=== PATIENT | male | born 1945 | race Caucasian/White ===

== ENCOUNTER → 2017-08-10 | Outpatient (CLI) | payer MEDICARE ==
--- NOTE | 2017-08-10 12:04 | MR ---
EXAMINATION TYPE: MR knee RT wo con DATE OF EXAM: 08/10/2017 COMPARISON: Outside radiographs 07/27/2013 HISTORY: 72-year-old male Right knee pain TECHNIQUE: Multiplanar, multisequence imaging of the right knee is performed without IV contrast. FINDINGS: ACL, PCL, MCL, and LCL complex are intact. There is an oblique tear of the posterior horn of the medial meniscus with a tear extending into the substance of the body of the medial meniscus. Moderate to severe irregular cartilage loss especially along the mid weightbearing aspect of the medi al femoral condyle and also peripheral pleural aspect of the joint along the tibial plateau with mild underlying subchondral marrow edema. There is marginal spurring. Lateral meniscus appears intact. While there is some degenerative spurring in the lateral compartment , overall cartilage volume is maintained. Nearly full-thickness cartilage loss along portions of the medial patellar facet and also along the t rochlear facets with marginal spurring. Extensor mechanism is intact. [id number] knee joint effusion. No significant Lei's cyst. There is a small 4 mm loose body within the anterior tibiofemoral joint, sagittal image 18. Normal popliteal artery anatomy and mild diffuse muscular atrophy. No suspicious bone marrow replacem ent. Some patchy red marrow is present in the seen in the setting of anemia, obesity, smoking, and ch ronic disease. IMPRESSION: 1. Moderate to severe overall medial compartmental osteoarthrosis. Severe cartilage loss is present a long the mid weightbearing aspect of the medial femoral condyle and peripherally along the medial tib ial plateau where reactive subchondral bone marrow signal changes are present. 2. Moderate to severe patellofemoral compartmental osteoarthrosis. 3. Oblique tear posterior horn of the medial meniscus with tear extending into the substance of the m eniscal body. 4. Small to moderate knee joint effusion.
== END | disposition home or self-care (01) ==
LOC: RADMRIMAIN 08:16
PROVIDERS: ATTEND Orthopaedic Surgery
DX: S83.241A Other tear of medial meniscus, current injury, right knee, initial encounter (principal); M17.11 Unilateral primary osteoarthritis, right knee

== ENCOUNTER 2017-09-21 08:53 | Day surgery (SDC) | payer MEDICARE ==
[2017-09-15 13:27] VITALS: BMI 32.5
--- NOTE | 2017-09-20 16:18 | HP ---
HISTORY AND PHYSICAL REASON FOR ADMISSION: Surgery scheduled for 09/21/2017 HISTORY OF PRESENT ILLNESS: Uri Lamas is a 72-year-old patient seen with progressive right knee pain. Treatment options were discussed. He opted to proceed with right knee arthroscopy. Consent was obtained. Medical clearance was provided by Dr. Barreto. PAST MEDICAL HISTORY: Hypertension, hyperlipidemia, dzb-azqtrua-ukiqgokly diabetes, hypothyroidism. PAST SURGICAL HISTORY: Angioplasty, appendectomy. MEDICATIONS: Aspirin, atenolol, atorvastatin, fenofibrate, glipizide, levothyroxine, lisinopril, metformin. ALLERGIES: PENICILLIN, CIPRO. SOCIAL HISTORY: The patient reports he currently smokes cigarettes. PHYSICAL EXAMINATION: Evaluation of the right knee: His range of motion is 0 to 120 degrees. There is tenderness along the medial joint line. There is a positive medial Di's. There is crepitus along the medial and patellofemoral compartments and range of motion. Ligaments are stable. Hip rotation without pain. Distal neurovascular exam is intact. RADIOGRAPHS: Radiographs of the right knee revealed moderate medial and patellofemoral compartment osteoarthritis. An MRI of the right knee revealed a medial meniscal tear as well as osteoarthritis. IMPRESSION: 1. Internal derangement, right knee with medial meniscal tear. 2. Right knee osteoarthritis. 3. Hypertension. 4. Hyperlipidemia. 5. Hypothyroidism. PLAN: Right knee arthroscopy with partial meniscectomy and debridement. Surgery scheduled for 09/21/17. MMODL / IJN: [id number] /
[~2017-09-21 08:53] MED LIST: DEXAMETHASONE SOD PHOSPHATE 10 MG/ML 1 ML VIAL IV ONE; HYDROmorphone 0.5 MG/0.5 ML SYRINGE IVP PRN; LACTATED RINGERS 1,000 ML IV SCH; MORPHINE SULFATE 4 MG/ML SYRINGE IV PRN; ONDANSETRON 4 MG/2 ML VIAL IVP ONE
[2017-09-21] MEDS ORDERED: LIDOCAINE 1% 20 ML VIAL (10MG/ML) FOR IV START INTRADERMA ONE (10:05)
[2017-09-21 10:09] LABS: Glucose,Whole Blood 135 mg/dL (75-99)
[2017-09-21] MEDS ORDERED: fentaNYL (PF) 50 MCG/ML 2 ML AMP ONE (10:15)
[2017-09-21] MEDS ORDERED: LIDOCAINE 1% INJ 10MG/ML (20 ML MDV) ONE (10:15)
[2017-09-21] MEDS ORDERED: PROPOFOL 10 MG/ML 20 ML VIAL IV ONE (10:15)
[2017-09-21] MEDS ORDERED: PHENYLEPHRINE-0.9% NACL SYG 1 MG/10 ML SYRINGE ONE (10:15)
[2017-09-21] MEDS ORDERED: SUCCINYLCHOLINE CHLORIDE 100 MG/5 ML SYR IV ONE (10:15)
[2017-09-21] MEDS ORDERED: MIDAZOLAM 2 MG/2 ML VIAL ONE (10:15)
[2017-09-21] MEDS ORDERED: BUPIVACAINE (PF) 0.5% 30 ML VIAL SQ ONE (10:36)
--- NOTE | 2017-09-21 11:07 | P.OP ---
Date of Procedure: 09/21/17 Preoperative Diagnosis: Internal derangement right knee Postoperative Diagnosis: 1. Tear medial and lateral meniscus right knee 2. Grade 3/4 chondromalacia medial femoral condyle right knee 3. 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 Reactive synovitis medial and suprapatellar compartments right knee Procedure(s) Performed: 1. Arthroscopic partial medial and lateral meniscectomy right knee 2. Arthroscopic chondroplasty medial femoral condyle right knee 3. Arthroscopic chondroplasty patella right knee 4. Arthroscopic partial synovectomy medial and suprapatellar compartments right knee Implants: none Anesthesia: NEVAEHA, local Surgeon: Jaquan Mixon Estimated Blood Loss (ml): 9 Pathology: none sent Condition: stable Disposition: PACU Indications for Procedure: 72-year-old patient seen with progressive right knee pain. After having treatment options discussed, he elected to proceed with arthroscopy. Operative Findings: see description of procedure Description of Procedure: Patient was taken to the operative suite. Patient underwent a general anesthetic by the department of anesthesia. Patient was given preoperative antibiotics. The right lower extremity was placed in a well-padded arthroscopic leg rangel. The right leg was prepped and draped in the normal sterile orthopedic fashion. A lateral parapatellar and suprapatellar incision was made. Trochars were inserted. Arthroscopy was initiated. Suprapatellar pouch revealed diffuse thick reactive synovitis. The patellofemoral joint appeared to articulate congruently. There was grade 2/3 chondromalacia of the patella with some osteochondral tears present as well as grade 2/3 chondromalacia femoral sulcus. The scope was guided into the medial gutter. No loose bodies or plica were identified. The scope was then guided into the medial compartment. A medial parapatellar incision was made. Trocar inserted followed by probe. There was a complex tear posterior medial meniscus present. There were grade 3 and 4 chondromalacia changes of the medial femoral condyle with peripheral osteochondral tears. There was synovitis anteriorly. A partial medial meniscectomy was performed on a stable tissue. I performed a chondroplasty of the medial femoral condyle down to stable tissue followed by partial synovectomy. The residual meniscus and osteochondral surfaces were stable. Scope and probe were then guided into the intercondylar notch. Cruciates were identified, probed and found to be stable. The scope and probe were then guided into lateral compartment. There was some superficial tearing midbody lateral meniscus. There were grade 1, she changes lateral compartment with no osteochondral tears present. No loose bodies or reactive synovitis was present. I performed a partial lateral meniscectomy down to stable tissue. The residual meniscus was found to be stable. The scope was in guided back into the suprapatellar compartment. I introduced a motorized shaver into the super patellar compartment. I debrided piecemeal fragments of meniscus I encountered. I performed a chondroplasty of the patella and femoral sulcus. I performed a partial synovectomy. The shaver was removed. I took one more look around the entire knee, no residual debris. Instruments were now removed from the joint. The joint was infiltrated with .25% Marcaine. Steri-Strips were applied to the portal sites. Sterile dressings were applied. The patient was placed into a TULIO hose. No tourniquet was utilized. The patient was awakened, transferred to a bed and taken to recovery stable satisfactory condition.
[2017-09-21 11:13] VITALS: TEMP 97
[2017-09-21 12:01] VITALS: RESP 18
[2017-09-21 12:06] LABS: Glucose,Whole Blood 100 mg/dL (75-99)
[2017-09-21 12:18] VITALS: BP 106/72; PULSE 51
== END 2017-09-21 12:56 | disposition home or self-care (01) ==
LOC: OR 08:53
PROVIDERS: ATTEND Orthopaedic Surgery
DX: M23.321 Other meniscus derangements, posterior horn of medial meniscus, right knee (principal); M23.361 Other meniscus derangements, other lateral meniscus, right knee; M65.861 Other synovitis and tenosynovitis, right lower leg; M17.11 Unilateral primary osteoarthritis, right knee; M22.41 Chondromalacia patellae, right knee; I10 Essential (primary) hypertension; E78.5 Hyperlipidemia, unspecified; E11.9 Type 2 diabetes mellitus without complications; I25.10 Atherosclerotic heart disease of native coronary artery without angina pectoris; E03.9 Hypothyroidism, unspecified; Z88.0 Allergy status to penicillin; Z88.1 Allergy status to other antibiotic agents; Z79.82 Long term (current) use of aspirin; Z79.84 Long term (current) use of oral hypoglycemic drugs; Z79.899 Other long term (current) drug therapy; Z87.891 Personal history of nicotine dependence; Z95.5 Presence of coronary angioplasty implant and graft; Z93.2 Ileostomy status
CPT/HCPCS: 29880; J2250; J0690; J2405; J2001; J3010; J2370; J0330; J2704

== ENCOUNTER → 2018-09-12 | Outpatient (CLI) | payer MEDICARE ==
--- NOTE | 2018-09-12 14:02 | XR ---
Left foot HISTORY: Trauma months prior, toe drop 3 views of the left foot There are calcifications seen along the plantar aponeurosis. There is plantar calcaneus spur. Entheso phyte present at the insertion of the Achilles tendon. Spurring is present at the tibiotalar joint wi th joint space loss, there is hypertrophic change at the intertarsal joints. Multiple ossific densiti es are present about the foot which may represent accessory ossicles, these foci are well-corticated and not felt likely to be acute. Cortical thickening of the proximal fifth metatarsal may be due to r emote trauma. Alignment and bone mineralization are maintained. Arthropathy also noted at the first d igit. There are vascular calcifications present. IMPRESSION: Osteoarthritis, plantar calcaneus spur and additional findings above.
== END | disposition home or self-care (01) ==
LOC: RADXRMAIN 11:41
PROVIDERS: ATTEND Family Medicine
DX: M19.072 Primary osteoarthritis, left ankle and foot (principal); M77.31 Calcaneal spur, right foot

== ENCOUNTER → 2023-10-24 | Outpatient (CLI) | payer MEDICARE ==
--- NOTE | 2023-10-24 08:54 | US ---
EXAMINATION TYPE: US kidneys/renal and bladder DATE OF EXAM: 10/24/2023 COMPARISON: NONE CLINICAL INDICATION: Male, 78 years old with history of N39.9 DISORDER OF URINARY SYSTEM, UNSPECIFIED ; UTI's this past year, no symptoms at time of exam EXAM MEASUREMENTS: Right Kidney: 10.8 x 5.2 x 5.3 cm Left Kidney: 11.1 x 4.7 x 5.6 cm Right Kidney: hypoechoic lesion inferior pole may represent cyst = 2.4 x 1.7 x .7cm Left Kidney: No hydronephrosis or masses seen Bladder: wnl There is no evidence for hydronephrosis at this point in time. No nephrolithiasis is seen. No solid masses are identified. The urinary bladder is anechoic. Bilateral ureteral jets are seen. IMPRESSION: Simple cyst right kidney. Otherwise unremarkable study.
== END | disposition home or self-care (01) ==
LOC: RADUSWWP 08:07
PROVIDERS: ATTEND Urology
DX: N28.1 Cyst of kidney, acquired (principal)
CPT/HCPCS: 76770